=== PATIENT | male | born 1950 | race Caucasian/White ===

== ENCOUNTER 2019-08-28 10:22 | Outpatient (CLI) | payer OTHER, SELFPAY ==
--- NOTE | ~2019-08-28 | MR_ITS ---
EXAMINATION: MR forearm LT wo con DATE: 08/28/2019 12:16 INDICATION: Localized swelling, mass, and lump of left forearm. TECHNIQUE: Magnetic resonance imaging (MRI) of the left forearm was performed without intravenous con trast. Sequences included coronal and axial T1-weighted FSE and coronal, sagittal, and axial T2-weigh elizabeth FS FSE. COMPARISON: Left elbow radiographs 05/05/2018 FINDINGS: Bone alignment is normal. No fracture. The elbow joint spaces are normal. There is mild dunia ma in flexor carpi ulnaris muscle. There is no abnormal mass. The neurovascular bundles are normal. IMPRESSION: 1. Mild edema in flexor carpi ulnaris muscle, which may be secondary to mild strain or contusion. Reviewed, dictated and finalized at location A. IMPRESSION: 1. Mild edema in flexor carpi ulnaris muscle, which may be secondary to mild st rain or contusion.
== END 2019-08-28 10:23 | disposition home or self-care (01) ==
PROVIDERS: PCP Internal Medicine; Visit Provider Psychiatry & Neurology Neurology
DX: R22.32 Localized swelling, mass and lump, left upper limb (principal)
CPT/HCPCS: 73218

== ENCOUNTER 2020-06-27 06:38 | Outpatient (CLI) | payer OTHER, SELFPAY ==
--- NOTE | ~2020-06-27 | NM_ITS ---
EXAMINATION: NM celso stress w perfusion DATE: 06/27/2020 11:21 INDICATION: Dyspnea on exertion. TECHNIQUE: Rest images were obtained following intravenous administration of 10.5 mCi Tc99m tetrofosm in (Myoview). The patient was infused intravenously with Lexiscan (regadenoson). Then, 33 mCi Tc99m t etrofosmin (Myoview) was administered intravenously, and stress images were obtained. Data was recons tructed into short axis and horizontal and vertical long axis SPECT images. Gated SPECT images were a lso obtained. COMPARISON: None. FINDINGS: There is no definite reversible or fixed perfusion abnormality to suggest ischemia or infar ction. There is no segmental wall motion abnormality. Left ventricular ejection fraction measures 6 9%. IMPRESSION: 1. No definite ischemia or infarct. 2. Normal left ventricular ejection fraction measuring 69%. Reviewed, dictated and finalized at location A. L CUTTER
--- NOTE | 2020-06-27 07:33 | ECHO_ITS ---
Patient Info Name: Kristopher Billy Age: 70 years : 1950 Gender: Male Ht: 71 in Wt: 230 lbs BSA: 2.32 m2 HR: 55 bpm BP: 189 / 69 mmHg Technical Quality: Good Exam Date: 06/27/2020 8:19 AM Exam Location: [facility] Pulmonary Patient Status: Outpatient Admit Date: 06/27/2020 Staff Ordering Physician: Aristides Lee DO Cycle Repairer: Renny Connell RDCS, RT Attending Provider: Aristides Lee DO Referring Physician: Jesus MCKINNEY; Exam Type: CA echo doppler color flow Study Info Indications R06.00 - Dyspnea, unspecified Complete two-dimensional, color flow and Doppler transthoracic echocardiogram is performed. Summary 1. Complete two-dimensional, color flow and Doppler transthoracic echocardiogram is performed. 2. Left ventricular chamber dimension is normal. 3. Left ventricular systolic function is normal, estimated at 60-65%. 4. The left ventricular diastolic function is abnormal. 5. E/e' 20 is elevated. 6. Global longitudinal strain is normal at -19.2%. 7. Left atrial chamber dimension is mildly enlarged. 8. Right atrial chamber dimension is mildly enlarged. 9. There is moderate aortic valve sclerosis. 10. There is very mild aortic valve stenosis with a peak velocity of 201 cm/s, mean gradient of 9 mmHg, and aortic valve area of 2.0 cm2. 11. The mitral valve has mildly calcified annulus. 12. There is mild mitral valve regurgitation. 13. There is mild to moderate tricuspid valve regurgitation. 14. Severe pulmonary hypertension, estimated pulmonary arterial systolic pressure is 75 mmHg. 15. There is trace pulmonic regurgitation. 16. Small atheroma in anterior aortic root. 17. Dilated inferior vena cava with >50% collapse upon inspiration consistent with elevated right atrial pressure, 10 mmHg. Left Ventricle E/e' 20 is elevated. Global longitudinal strain is normal at -19.2%. Left ventricular chamber dimension is normal. Left ventricular systolic function is normal, estimated at 60-65%. The left ventricular diastolic function is abnormal. Right Ventricle Right ventricular chamber dimension is normal. Right ventricular systolic function is normal. Left Atria Left atrial chamber dimension is mildly enlarged. Right Atria Right atrial chamber dimension is mildly enlarged. Aortic Valve There is very mild aortic valve stenosis with a peak velocity of 201 cm/s, mean gradient of 9 mmHg, and aortic valve area of 2.0 cm2. The aortic valve is trileaflet. There is moderate aortic valve sclerosis. There is no aortic valve regurgitation. Pulmonic Valve There is trace pulmonic regurgitation. Mitral Valve The mitral valve has mildly calcified annulus. There is no mitral valve stenosis. There is mild mitral valve regurgitation. Tricuspid Valve There is mild to moderate tricuspid valve regurgitation. Severe pulmonary hypertension, estimated pulmonary arterial systolic pressure is 75 mmHg. Pericardium/Pleural There is no pericardial effusion. Inferior Vena Cava Dilated inferior vena cava with >50% collapse upon inspiration consistent with elevated right atrial pressure, 10 mmHg. Aorta Small atheroma in anterior aortic root. The aortic root size at the sinus of Valsalva is normal. Left Ventricular Outflow Tract Name Value Normal LVOT 2D
--- NOTE | 2020-06-27 07:38 | EST_ITS ---
Patient Info Name: Kristopher Billy Age: 70 years : 1950 Gender: Male Ht: 71 in Wt: 230 lbs BSA: 2.32 m2 Exam Date: 06/27/2020 9:41 AM Exam Location: [facility] Stress Patient Status: Outpatient Admit Date: 06/27/2020 Staff Ordering Physician: Aristides Lee DO Attending Provider: Aristides Lee DO Exercise Technologist: Heidi Resendez RDCS Exercise Physician: Aristides Lee DO Exam Type: CA stress celso w NM Study Info Indications R06.00 - Dyspnea, unspecified A regadenoson stress test was performed. Summary 1. 1. Negative lexiscan stress test for ischemic ST changes by ECG criteria. 2. 2. Baseline hypertension. 3. 3. Nuclear scan to follow and will be reported separately. Please correlate with it. 4. 4. Patient informed of the above results. Protocol: Lexiscan Stress ECG Details Stage: REST Duration (min): 6 min : 13 sec HR (bpm): 51 SBP (mmHg): 153 DBP (mmHg): 77 Stage: REST Duration (min): 22 min : 18 sec HR (bpm): 50 SBP (mmHg): 153 DBP (mmHg): 77 Stage: STAGE 1 Duration (min): 1 min : 0 sec HR (bpm): 63 SBP (mmHg): 154 DBP (mmHg): 72 Stage: RECOVERY Duration (min): 1 min : 0 sec HR (bpm): 70 SBP (mmHg): 154 DBP (mmHg): 72 Stage: RECOVERY Duration (min): 2 min : 0 sec HR (bpm): 70 SBP (mmHg): 144 DBP (mmHg): 69 Stage: RECOVERY Duration (min): 3 min : 0 sec HR (bpm): 67 SBP (mmHg): 141 DBP (mmHg): 65 Stage: RECOVERY Duration (min): 4 min : 0 sec HR (bpm): 70 SBP (mmHg): 141 DBP (mmHg): 65 Stage: RECOVERY Duration (min): 5 min : 0 sec HR (bpm): 65 SBP (mmHg): 154 DBP (mmHg): 67 Stage: RECOVERY Duration (min): 5 min : 5 sec HR (bpm): 66 SBP (mmHg): 154 DBP (mmHg): 67 Rest HR: 50 bpm Peak HR: 71 bpm Rest Sys BP: 153 mmHg Peak Sys BP: 154 mmHg Max Pred HR: 150 bpm % Max Pred HR: 47 % Target HR: 128 bpm Max RPP: 10,934 bpm*mmHg Termination Reason: Completed protocol Cardiac Symptoms: Nausea Total Time: 1 min : 0 sec Rest Jeter BP: 77 mmHg Peak Jeter BP: 72 mmHg Total Dose: 0.4 mg Resting ECG Sinus rhythm. Stress ECG No ST changes. Arrhythmias None. Report Signatures
== END 2020-06-27 06:39 | disposition home or self-care (01) ==
PROVIDERS: PCP Nurse Practitioner Family; Visit Provider Internal Medicine Cardiovascular Disease
DX: R06.00 Dyspnea, unspecified (principal); I08.3 Combined rheumatic disorders of mitral, aortic and tricuspid valves
CPT/HCPCS: 78452; 93017; 93306; A9502; J2785

== ENCOUNTER 2020-08-19 08:52 | Outpatient (CLI) | payer OTHER, SELFPAY ==
--- NOTE | 2020-08-19 10:33 | PCRCNOTE ---
PT CAME IN FOR PULMONARY FUNCTION TEST BUT WAS UNABLE TO DO. PT'S RESTING HEART RATE WAS 45 AND BLOOD PRESSURE WAS 157/82. PHYSICIAN'S OFFICE WAS NOTIFIED AND ADVISED PT TO GO TO ER. I ACCOMPANIED PT TO ER FOR EVALUATION.
== END 2020-08-19 08:53 | disposition home or self-care (01) ==
LOC: ANHPFT 08:54
PROVIDERS: Family Provider Family Medicine; PCP Nurse Practitioner Family; Visit Provider Nurse Practitioner Family
DX: R05 Cough (principal); Z87.891 Personal history of nicotine dependence; Z53.9 Procedure and treatment not carried out, unspecified reason
CPT/HCPCS: 99199

== ENCOUNTER 2020-08-19 10:35 | Emergency (ER) | payer OTHER, SELFPAY ==
[2020-08-19] VITALS (10 sets, daily range): BP systolic 148–184; BP diastolic 48–137; PULSE 43–59; RESP 14–19; TEMP 36; O2SAT 97–100
--- NOTE | ~2020-08-19 | XR_ITS ---
XR chest 2V 08/19/2020 11:30 Indication: Bradycardia Procedure: 2 view chest Comparison: 11/06/2008 Findings: Moderate cardiomegaly. No significant effusion. No pneumothorax. No focal air space disease , pulmonary edema, pleural effusion or suspected pneumothorax. Impression: 1: No acute cardiopulmonary disease. 2: Cardiomegaly. Reviewed, dictated and finalized at location B. Impression: 1: No acute cardiopulmonary disease. 2: Cardiomegaly.
--- NOTE | 2020-08-19 10:47 | ECG_ITS ---
Measurements Intervals Nelson Rate: 58 P: 39 TX: 168 QRS: -15 QRSD: 94 T: 34 QT: 473 QTc: 466 Interpretive Statements SINUS BRADYCARDIA WITH MARKED SINUS ARRHYTHMIA DELAYED PRECORDIAL R/S TRANSITION BORDERLINE T WAVE ABNORMALITY- ANTERIOR LEADS BASELINE ARTIFACT- I, II, III BORDERLINE ECG Electronically Signed On 08-19-2020 12:09:54 CDT by Aristides Lee D.O.
[2020-08-19 11:10] LABS: Basophils Percent Auto 0.6 % (0.2-1.2); Eosinophils Absolute Auto 0.2 K/mm3 (0-0.3); Eosinophils Percent Auto 3.2 % (0-4.4); Hematocrit 35.9 % (42.0-52.0); Hemoglobin 11.4 g/dL (14.0-18.0); Immature Granulocyte Absolute 0.02 K/mm3 (0.00-0.031); Immature Granulocyte Percent A 0.3 % (0-0.5); Lymphocytes Absolute Auto 2.17 K/mm3 (0.9-3.2); Mean Corpuscular HGB Conc 31.8 g/dl (32-36); Mean Corpuscular Hemoglobin 30.1 pg (26-34); Mean Corpuscular Volume 94.7 fl (80-100); Mean Platelet Volume 10.6 fl (7.4-10.4); Monocytes Absolute Auto 0.8 K/mm3 (0.1-0.6); Monocytes Percent Auto 11.5 % (2.6-8.5); Neutrophils Absolute Auto 3.9 K/mm3 (1.3-6.7); Neutrophils Percent Auto 54.4 % (45.5-73.1); Platelet Count Result 243 k/mm3 (150-375); Red Blood Count 3.79 M/mm3 (4.6-6.20); Red Cell Distribution Width 15.6 % (11.5-14.5); White Blood Count 7.2 K/mm3 (4.5-10.0)
--- NOTE | 2020-08-19 12:29 | PC.NURSE ---
Labs redrawn due to blood being hemolyzed.
[2020-08-19 12:44] LABS: Anion Gap 5 mmol/L (8-16); Blood Urea Nitrogen 19 mg/dL (9-20); Calcium 8.9 mg/dL (8.4-10.2); Carbon Dioxide 32 mmol/L (22-30); Chloride 102 mmol/L (98-107); Estimated Glomerular Filt Rate 55; Glucose 92 mg/dL (75-110); Potassium 4.1 mmol/L (3.4-5.0); Sodium 139 mmol/L (137-145)
[2020-08-19 12:54] LABS: NT Pro B Type Natriuretic Pept 1770 PG/ML (5-100)
--- NOTE | 2020-08-19 13:16 | ED.GENADULT ---
HPI - General Adult General Chief complaint: Recheck/Abnormal Lab/Rx Stated complaint: slow heart rate Time Seen by Provider: 08/19/20 10:36 History of Present Illness HPI narrative: Patient is a 70-year-old male who presents ER with low heart rate. Patient reports he has been having some difficulty with breathing over the last year and has started to get it worked up. He recently had a negative Lexiscan. He was doing a breathing study today when they noticed that his heart rate was persistently in the 40s. Patient is having no chest pain or chest pressure. No change in his ability to exert himself. No lightheadedness. Reports his heart rate is typically around the 60s/70s. He does take atenolol at home. Related Data Home Medications Medication Instructions Recorded Confirmed aspirin 81 mg tablet,delayed 81 mg PO DAILY 03/27/19 06/02/20 release cholecalciferol (vitamin D3) 10 400 unit PO DAILY 03/27/19 06/02/20 mcg (400 unit) capsule lancets 33 gauge #100 each 03/27/19 06/02/20 metformin 1,000 mg tablet 1,000 mg PO BID 03/27/19 06/02/20 Allergies Allergy/AdvReac Type Severity Reaction Status Date / Time No Known Allergies Allergy Mild Verified 08/19/20 11:16 Review of Systems Review of Systems: All systems reviewed & are unremarkable except as noted in HPI and below Constitutional: Constitutional: Denies chills, Denies fever(s) and Denies weakness ENT: Denies nasal congestion and Denies sore throat Cardiovascular: Cardiovascular: Denies chest pain, Denies rapid heart rate and Denies radiating jaw, neck or arm pain Respiratory: Respiratory: Denies cough and Reports dyspnea (Chronic) Gastrointestinal: Gastrointestinal: Denies abdominal pain, Denies nausea and Denies vomiting [facility] Past Medical History Medical History (Updated 08/19/20 @ 13:26 by Yayo Good MD) Dog bite of elbow (~04/27/18) Dyslipidemia Encounter for screening colonoscopy (~09/25/16) NSVT (nonsustained ventricular tachycardia) Surgical History Surgical History (Updated 06/02/20 @ 13:41 by Aristides Lee DO) History of right-sided carotid endarterectomy (~08/30/18) Family History Family History (Updated 07/14/18 @ 09:04 by DOCTOR UNKNOWN) Father Family history of alcoholism Family history of coronary artery disease, Onset Age: 59 Family history of heart disease in male family member before age 55 Acute myocardial infarction, Onset Age: 59 Mother Cerebrovascular accident, Onset Age: 69 Family history of coronary artery disease Family history of heart disease in male family member before age 55 Sibling Family history of coronary artery disease, Onset Age: 66 Other Family history of arthritis Family history of cardiovascular disease Hypertension Social History Social History Smoking status: Former smoker Second hand tobacco smoke exposure: No Smoking end date: 05/20/87 Alcohol intake: current Gender identity (if verbalized by the patient): Male Exam Narrative: Exam Narrative: GENERAL: Well-appearing, well-nourished, and in no acute distress. HEAD: Normocephalic, atraumatic. ENT: Mucous membranes moist CHEST: Clear to auscultation. No respiratory distress. HEART: Bradycardic and regular. Normal peripheral pulses. ABDOMEN: Soft, nontender, nondistended. EXTREMITIES: Normal range of motion. No edema. SKIN: Warm, dry, no rash. NEURO: Alert and oriented x3. PSYCH: Normal mood and affect. Course Course Emergency Course: Discussed with Dr. Lee. Recommends decreasing atenolol to 50 mg daily and increasing losartan to 100 mg daily. Patient educated on treatment plan and verbalized understanding. Patient will be given 2 weeks of his new dosage of medication so he does not have to attempt to modify his home meds and he will follow up with Dr. Asif. Vital Signs Vital signs: Vital Signs Pulse Rate 52 L 08/19/20 10:44 Respiratory Rate 19 08/19/20 10:44
== END 2020-08-19 14:12 | disposition home or self-care (01) ==
PROVIDERS: Emergency Provider Emergency Medicine; PCP Nurse Practitioner Family
DX: R00.1 Bradycardia, unspecified (principal); E78.5 Hyperlipidemia, unspecified; I51.7 Cardiomegaly; R94.31 Abnormal electrocardiogram [ECG] [EKG]; R06.9 Unspecified abnormalities of breathing
CPT/HCPCS: 36415; 71046; 80048; 83880; 85025; 93005; 99283

== ENCOUNTER 2020-09-22 13:24 | Outpatient (CLI) | payer OTHER, SELFPAY ==
--- NOTE | 2020-09-22 16:40 | WPDPFTINT ---
PFT Procedure Performed PFT Procedure Performed Spirometry with Pre/Post Bronchodilator Plethysmography (Lung Vol) Diffusing Cap (DLCO) Flow Vol Loop PFT Interpretation This is a pulmonary function test with pre and post-bronchodilator spirometry, plethysmography and diffusing capacity. The test was performed and results interpreted in accordance with the 2019 and 2005 ATS/ERS Task Force guidelines respectively using the Global Lung Function Initiative-2012 reference equations. Patient demonstrated good effort and cooperation. Reproducibility criteria were met. The quality of the pre bronchodilator spirometry maneuver was Grade A and post bronchodilator spirometry maneuver was Grade A. Findings: Spirometry: There is flattening of the expiratory flow tracings. The contour of the inspiratory flow tracing is normal. The pre bronchodilator FVC is 2.90 L, 66% predicted. The pre bronchodilator FEV1 is 2.15 L, 65% predicted. The FEV1: FVC ratio is 74%. The post bronchodilator FVC is 2.80 L, representing a 4% decrease. The post bronchodilator FEV1 is 2.14 L, representing no change. Plethysmography, the total lung capacity is 5.07 L, 70% predicted. The functional residual capacity is 2.80 L, 73% predicted. The residual volume is 2.14 L, 86% predicted. Diffusing capacity: The absolute diffusion capacity is 13.8, 52% predicted. The diffusing capacity corrected for alveolar volume is 2.84, 73% predicted. Impression: There is flattening of the expiratory flow tracing. This is consistent with a variable intrathoracic obstruction which can be seen with intrathoracic tracheal malacia, bronchogenic cysts, or malignant tracheal lesions. clinical correlation is recommended. There is a moderate restrictive ventilatory abnormality. There is no significant improvement after inhaling a single dose of albuterol. The absolute diffusing capacity is moderately decreased and normalizes when corrected for alveolar volume. There are no prior studies for comparison
== END 2020-09-22 13:25 | disposition home or self-care (01) ==
LOC: ANHPFT 13:25
PROVIDERS: PCP Nurse Practitioner Family; Visit Provider Nurse Practitioner Family
DX: R05 Cough (principal); Z87.891 Personal history of nicotine dependence; R94.2 Abnormal results of pulmonary function studies
CPT/HCPCS: 94060; 94726; 94729

== ENCOUNTER 2021-02-23 07:03 | Outpatient (CLI) | payer OTHER, SELFPAY ==
--- NOTE | ~2021-02-23 | CT_ITS ---
EXAMINATION: CTA chest PE protocol DATE: 02/23/2021 07:42 INDICATION: Pulmonary hypertension TECHNIQUE: Computed tomography angiography (CTA) of the chest was performed with 100 mL Omnipaque-350 intravenous contrast timed to evaluate the pulmonary arteries. Coronal maximum intensity projection 3D-reconstructions were created by the technologist. Automated exposure control and iterative reconst ruction technique were employed. Exam dose: 648.07 mGy-cm total exam DLP. COMPARISON: 08/19/2020 2 view chest FINDINGS: There is diagnostic contrast enhancement of the pulmonary arteries and no evidence of pulmo nary embolism. There is atherosclerotic calcification of the thoracic aorta, great vessels and coronary arteries but no thoracic aortic aneurysm or dissection is evident. Cardiomegaly. No pericardial or pleural effusion. No hilar or mediastinal mass lesion or lymphadenopathy. No pulmonary infiltrate or consolidation or suspicious pulmonary mass lesion is detected. Likely laquita gn small right greater fissural node. Normal morphology of the adrenal glands. Diffuse idiopathic skeletal hyperostosis thoracic spine. No suspicious osteolytic or osteoblastic les ions are noted. IMPRESSION: No evidence of pulmonary embolism Reviewed, dictated and finalized at Location A. Reviewed, dictated and finalized at location A.
[2021-02-23 07:30] LABS: Estimated Glomerular Filt Rate 60
== END 2021-02-23 07:04 | disposition home or self-care (01) ==
PROVIDERS: PCP Nurse Practitioner Family; Visit Provider Internal Medicine Pulmonary Disease
DX: I27.20 Pulmonary hypertension, unspecified (principal)
CPT/HCPCS: 71275; Q9967

== ENCOUNTER 2021-03-02 09:41 | Outpatient (CLI) | payer OTHER, SELFPAY ==
--- NOTE | 2021-03-02 09:50 | ECHO_ITS ---
Patient Info Name: Kristopher Billy Age: 70 years : 1950 Gender: Male Ht: 71 in Wt: 222 lbs BSA: 2.27 m2 HR: 54 bpm BP: 143 / 72 mmHg Technical Quality: Good Exam Date: 03/02/2021 10:00 AM Exam Location: [facility] Patient Status: Outpatient Admit Date: 03/02/2021 Staff Ordering Physician: Jay Jay Isaac MD Professional Organizer: Heidi Resendez RDCS Attending Provider: Jay Jay Isaac MD Referring Physician: Poncho IYER; Exam Type: CA echo doppler color flow Study Info Indications R06.02 - Shortness of breath Complete two-dimensional, color flow and Doppler transthoracic echocardiogram is performed. Summary 1. Complete two-dimensional, color flow and Doppler transthoracic echocardiogram is performed. 2. Left ventricular chamber dimension is normal. 3. Left ventricular systolic function is normal, estimated at 60-65%. 4. There is mildly increased left ventricular wall thickness. 5. The left ventricular diastolic function is grade I diastolic dysfunction. 6. E/e' 15 is elevated. 7. Global longitudinal strain is abnormal at -15.7%. 8. Left atrial chamber dimension is mildly enlarged. 9. There is moderate aortic valve sclerosis. 10. No aortic valve stenosis based on a peak velocity of 206 cm/s, mean gradient of 9 mmHg, and aortic valve area of 2.9 cm2. However, by visual estimation there appears to be mild aortic stenosis. 11. The mitral valve has mildly calcified annulus. 12. There is mild mitral valve regurgitation. 13. There is trace tricuspid valve regurgitation. 14. Mild pulmonary hypertension, estimated pulmonary arterial systolic pressure is 41 mmHg. Left Ventricle E/e' 15 is elevated. Global longitudinal strain is abnormal at -15.7%. Left ventricular chamber dimension is normal. Left ventricular systolic function is normal, estimated at 60-65%. There is mildly increased left ventricular wall thickness. The left ventricular diastolic function is grade I diastolic dysfunction. Right Ventricle Right ventricular chamber dimension is normal. Right ventricular systolic function is normal. Left Atria Left atrial chamber dimension is mildly enlarged. Right Atria Right atrial chamber dimension is normal. Atrial Septum Intact interatrial septum visualized by 2D and color flow imaging. Aortic Valve No aortic valve stenosis based on a peak velocity of 206 cm/s, mean gradient of 9 mmHg, and aortic valve area of 2.9 cm2. However, by visual estimation there appears to be mild aortic stenosis. The aortic valve is trileaflet. There is moderate aortic valve sclerosis. There is no aortic valve stenosis. There is no aortic valve regurgitation. Pulmonic Valve There is no pulmonic regurgitation. Mitral Valve The mitral valve has mildly calcified annulus. There is no mitral valve stenosis. There is mild mitral valve regurgitation. Tricuspid Valve There is trace tricuspid valve regurgitation. Mild pulmonary hypertension, estimated pulmonary arterial systolic pressure is 41 mmHg. Pericardium/Pleural There is no pericardial effusion. Inferior Vena Cava Normal inferior vena cava with >50% collapse upon inspiration consistent with normal right atrial pressure, 5 mmHg. Aorta The aortic root size at the sinus of Valsalva is normal. Left Ventricular Outflow Tract Name Value Normal
--- NOTE | 2021-03-02 12:35 | WPDPFTINT ---
PFT Procedure Performed PFT Procedure Performed Flow Vol Loop Spirometry w/o Bronchodil PFT Interpretation Spirometry showed diminished expiratory flow rates and a normal FEV1 to FVC ratio 73%. No post bronchodilator study was done. Flow volume loop showed a plateau in the expiratory flows, suggestive of possible intrathoracic airway obstruction. In comparison to previous study in September of 2020, the FEV1 and FVC are little changed. Impression: Spirometry with a restrictive pattern. Possible upper airway obstruction.
== END 2021-03-02 09:42 | disposition home or self-care (01) ==
LOC: ANHCARD 09:44
PROVIDERS: PCP Nurse Practitioner Family; Visit Provider Internal Medicine Pulmonary Disease
DX: R06.02 Shortness of breath (principal); R06.00 Dyspnea, unspecified; I08.3 Combined rheumatic disorders of mitral, aortic and tricuspid valves
CPT/HCPCS: 93306; 94375

== ENCOUNTER 2023-04-25 13:53 | Outpatient (CLI) | payer OTHER, MEDICAID, SELFPAY | END 2023-04-25 13:54 | disposition home or self-care (01) | LOC: ANHAUDIO 13:54 | PROVIDERS: PCP Nurse Practitioner Family; Visit Provider Nurse Practitioner Family | DX: H90.3 Sensorineural hearing loss, bilateral (principal) | CPT/HCPCS: 92557; 92567 ==